=== PATIENT | female | born 1965 | race Caucasian/White ===

== ENCOUNTER → 2019-06-20 | Outpatient (CLI) | payer BC ==
--- NOTE | 2019-06-20 12:56 | Diagnostic Imaging Report ---
EXAMINATION: ELBOW LEFT COMPLETE, FOREARM LEFT 2 VIEW, HAND 3+ VIEWS LEFT, WRIST COMPLETE LEFT INDICATION: Trauma COMPARISON: None FINDINGS: Left elbow: No acute fracture or dislocation. No elbow joint effusion. The soft tissues appear unremarkable. Left forearm: No acute fracture or dislocation. Left wrist: No acute fracture or dislocation. Mild all are negative variance. The soft tissues appear unremarkable. Left hand: No acute fracture or dislocation. The soft tissues appear unremarkable. No substantial degenerative changes. IMPRESSION: No acute osseous injury of the left elbow, forearm, wrist or hand. Signed by: Silvia Samson MD on 06/20/2019 12:52 PM
== END ==
LOC: RAD 10:46
PROVIDERS: ATTEND Internal Medicine
DX: M25.522 Pain in left elbow (principal); M79.632 Pain in left forearm; M25.532 Pain in left wrist; M79.642 Pain in left hand